=== PATIENT | female | born 1960 | race Caucasian/White ===

== ENCOUNTER 2023-10-08 15:45 | Emergency (ER) | payer BC, SELFPAY ==
--- NOTE | ~2023-10-08 | XR_ITS ---
EXAMINATION: XR CHEST CLINICAL INFORMATION: Cough, shortness of breath COMPARISON: None available. TECHNIQUE: 2 views of the chest were obtained. FINDINGS: Minimal right apical pleural-parenchymal scarring. Otherwise clear lungs. No pleural effusion or pneumothorax. Normal heart size and mediastinal contours. XR/XR chest 2V IMPRESSION: No acute cardiopulmonary abnormality.
[2023-10-08 15:51] VITALS: BP 171/97; PULSE 104; RESP 20; TEMP 36.4; O2SAT 100; BMI 16.5
--- NOTE | 2023-10-08 15:51 | ED.URI ---
HPI - URI/Sore Throat General Chief Complaint: Upper Respiratory Symptoms Stated Complaint: Coughing/SOB Time Seen by Provider: 10/08/23 17:33 Source: patient Mode of arrival: ambulatory Limitations: no limitations History of Present Illness HPI Narrative: 62 yo female with history of asthma here with complaints of chest tightness, wheezing today unrelieved with albuterol at home. post albuterol also noticed some palpitations. Of note, is being treated for sinus infection with augmentin. Symptoms of sinus pressure/congestion are improving. Still has a cough which is intermittently productive. No fevers, chills, chest pain, diff breathing, abdominal pain, vomiting, diarrhea, skin rash, leg swelling or leg pain. Related Data Previous Rx's Medication Instructions Recorded levalbuterol tartrate 45 2 inh inhalation Q4H PRN shortness 10/08/23 mcg/actuation aerosol inhaler of breath or wheezing #15 grams (Xopenex HFA) prednisone 20 mg tablet 40 mg (2 x 20 mg) PO DAILY #10 tabs 10/08/23 Allergies Allergy/AdvReac Type Severity Reaction Status Date / Time Sulfa (Sulfonamide Allergy Intermediate Hives Verified 10/08/23 15:50 Antibiotics) Review of Systems Review of Systems: Yes all other systems are reviewed and are negative Constitutional: Constitutional: Reports no additional constitutional complaints, Denies body ache(s), Denies chills, Denies fever(s), Denies headache(s) and Denies weakness Eyes: Eyes: Reports no additional eye complaints and Denies change in vision ENT: Reports system reviewed and no additional complaints, except as documented, Denies dizziness, Denies headache(s), Denies nasal congestion, Denies nasal discharge and Denies neck pain Cardiovascular: Cardiovascular: Reports no additional cardiovascular complaints, Denies chest pain, Denies leg edema and Denies dyspnea Respiratory: Respiratory: Reports no additional respiratory complaints, Reports cough, Denies dyspnea and Reports wheezing Gastrointestinal: Gastrointestinal: Reports no additional gastrointestinal complaints, Denies abdominal pain, Denies diarrhea, Denies nausea and Denies vomiting Genitourinary: Genitourinary: Reports no additional female genitourinary complaints and Denies urinary incontinence Musculoskeletal: Musculoskeletal: Reports no additional musculoskeletal complaints, Denies back pain, Denies arthralgias, Denies joint swelling, Denies neck pain, Denies numbness and Denies tingling Integumentary/Breasts: Skin/Breast: Reports system reviewed and no additional complaints, except as docu and Denies rash Neurologic: Reports system reviewed and no additional complaints, except as documented, Denies Abnormal speech present, Denies dizziness, Denies headache(s), Denies numbness, Denies tingling and Denies weakness Allergic/Immunologic: Allergic/Immunologic: Reports wheezing PMFSH Past Medical History Attestation statement: The following information was validated with the patient. Source: old records reviewed and nursing notes reviewed Social History Social History Advance Directives: No Advance Directives Information Provided: No Physical Exam Vital Signs: Vital Signs: Last Vital Signs Temp 97.5 F 10/08/23 15:51 Pulse 104 H 10/08/23 15:51 Resp 20 10/08/23 15:51 BP 171/97 H 10/08/23 15:51 Pulse Ox 100 10/08/23 15:51 O2 Del Method Room Air 10/08/23 15:51 BMI result Body Mass Index 16.5 Const: General: cooperative, healthy appearing, comfortable and no acute distress Orientation/consciousness: patient oriented x3 Limitations: no limitations HEENT: Head: Yes normal to inspection Ears: hearing grossly normal bilaterally and TM's normal bilaterally General nose exam: Normal external nose present Face and sinus: Yes normal facial exam Mouth: Normal oral and palatal mucosa present Throat: Yes posterior oropharynx normal, Yes tonsils normal and Yes uvula midline Eyes: General: appearance normal, both eyes and all related structures Pupils: Equal, round and reactive pupils present Neck: Neck: Yes normal visual inspection, Yes full ROM, Yes no lymphadenopathy and Yes no meningeal signs Chest: Chest palpation & inspection: normal inspection of the chest Resp: Effort & Inspection: normal respiratory effort Auscultation: wheezes Cardio: Rate: regular rate Rhythm: regular rhythm Peripheral pulses: Peripheral pulses 2+ throughout GI: Inspection: Yes normal to inspection Palpation (GI): Soft to palpation and nontender Auscultation: normal bowel sounds Back/Spine/Pelvis: Thoracic/Lumbar Spine: thoracic and lumbar spine normal to inspection Skin: General skin exam: no rashes or lesions noted Neuro: General: patient oriented x3, no meningeal signs, no focal motor deficits and normal sensation to monofilament Cranial nerves: Yes Equal, round and reactive pupils present Cognition (Neuro): normal cognition Speech: No Abnormal speech present Gait exam (Neuro): Normal gait present Motor exam (neuro): 5/5 motor strength present throughout Extrem: General: Yes normal to inspection Course Course Course Narrative: This is an RME: Additional HPI, ROS, PE not included below will be deferred to primary provider. Patient is a 62-year-old female who presents to the emergency department for evaluation of persistent cough, SOB, palpitations, i don't know if i'm having a panic attack . Reports recently diagnosed with sinus infection, RX'd augmentin, having some improvement in symptoms. However today she used an inhaler, and then began feeling shaky. Plan: viral testing, CXR Medical Decision Making Medical Decision Making [facility] Narrative: 62 yo female with history of asthma here with complaints of chest tightness, wheezing today unrelieved with albuterol at home. post albuterol also noticed some palpitations. Of note, is being treated for sinus infection with augmentin. Symptoms of sinus pressure/congestion are improving. Still has a cough which is intermittently productive. No fevers, chills, chest pain, diff breathing, abdominal pain, vomiting, diarrhea, skin rash, leg swelling or leg pain. +wheezing on exam. VSS Asymptomatic HTN Patient quite anxious-states this is normal. May be contributing to blood pressure/heart rate in addition to her use of the albuterol several times [employer] Will review CXR, viral testing ordered from triage Differential Diagnosis Differential Diagnoses: The differential diagnosis associated with the presentation includes uri with wheezing pna, PE less likely Admission/Observation Consideration of admission/observation: Escalation of care including admission/observation considered Lab Data [facility] Lab Attestation statement: I reviewed the patient's lab results. Labs: Lab Results 10/08/23 Range/Units 16:36 Influenza Type A (PCR) NEGATIVE (Negative) Influenza Type B (PCR) NEGATIVE (Negative) RSV RNA Qual (PCR) NEGATIVE (Negative) SARS-CoV-2 RNA (RT-PCR) NEGATIVE (Negative) Independent Interpretation I performed an independent interpretation of an: Plain X-Ray Interpretation: I independently reviewed the xray and agree with the rad report Radiology Impression Discussion of test interpretation with radiology: I have reviewed the radiologist's reading. Radiologist Impression: [address] [place] [address] XRay Report Signed Patient: Vianney Chavez MR#: [id number] : 1960 Acct:[id number] Age/Sex: 62 / F ADM Date: 10/08/23 Loc: HO.ED Attending Dr: Ordering Physician: Mable Malave CNP Date of Service: 10/08/23 Procedure(s): XR chest 2V Accession Number(s): [id number] cc: Mable Malave CNP; Physician,None ~ EXAMINATION: XR CHEST CLINICAL INFORMATION: Cough, shortness of breath COMPARISON: None available. TECHNIQUE: 2 views of the chest were obtained. FINDINGS: Minimal right apical pleural-parenchymal scarring. Otherwise clear lungs. No pleural effusion or pneumothorax. Normal heart size and mediastinal contours. XR/XR chest 2V IMPRESSION: No acute cardiopulmonary abnormality. Prescription Management I considered prescription management with: Antibiotic Discharge Plan Discharge Clinical Impression: Upper respiratory infection Patient Disposition: Home, Self-Care Instructions: Upper Respiratory Infection (ED) Additional Instructions: Continue the antibiotic Dont use the albuterol, ue the xopenex instead Take the prednisone as prescribed Testing for flu, covid, rsv are negative Chest x-ray is normal Prescriptions: New prednisone 20 mg tablet 40 mg PO DAILY Qty: 10 0RF levalbuterol tartrate [Xopenex HFA] 45 mcg/actuation HFA aerosol inhaler 2 inh inhalation Q4H PRN (Reason: shortness of breath or wheezing) Qty: 15 0RF
[2023-10-08 17:24] LABS: Influenza A PCR NEGATIVE (Negative); Influenza B PCR NEGATIVE (Negative); Resp Syncy Virus RNA Qual PCR NEGATIVE (Negative); SARS COV2 PCR INHOUSE NEGATIVE (Negative)
[2023-10-08 18:00] VITALS: BP 162/72; PULSE 119; RESP 16; TEMP 36.6; O2SAT 97
== END 2023-10-08 18:05 | disposition home or self-care (01) ==
PROVIDERS: Nurse Practitioner Family; Emergency Provider Emergency Medicine
DX: J06.9 Acute upper respiratory infection, unspecified (principal); R07.89 Other chest pain; R00.2 Palpitations; R05.9 Cough, unspecified
CPT/HCPCS: 0241U; 71046; 99283; 99284

== ENCOUNTER 2025-03-07 14:18 | Outpatient (AMB) | payer BC, SELFPAY ==
--- NOTE | 2025-03-07 14:21 | A.OFFPC_ITS ---
Vital Signs 03/07/25 14:27 03/07/25 17:54 Height 4 ft 10.07 in Weight 77 lb 8 oz BMI 16.2 BP 140/83 H 136/82 Blood Pressure Location Rt brachial Rt brachial Position Sitting Sitting Respiration 20 Pulse 108 H Pulse Source Pulse Oximeter Temp 98.7 F Temp Source Temporal Artery Scan Pulse Oximetry (%) 99 Oxygen Delivery Method Room Air Intake Visit Reasons: Establish care; neck pain Cash Accounting Clerk Required: No Accompanied by: Self / Same As Patient Allergies Sulfa (Sulfonamide Antibiotics) Allergy (Intermediate, Verified 03/07/25 14:43) Hives Medication List - Last Reconciled 03/07/25 by Zeny Ch PA-C bupropion HCl XL 150 mg PO QAM cetirizine (Zyrtec) 10 mg PO DAILY PRN levalbuterol tartrate 45 mcg/actuation (Xopenex HFA) 2 inhalations inhalation Q4H PRN mometasone 50 mcg/actuation (Nasonex 24hr Allergy) 2 sprays intranasal DAILY zolpidem 5 mg PO BEDTIME PRN Tobacco use date assessed: 03/07/25 Dental Screening Dental Screen Date: 03/07/25 Did you have a dental visit in the last 12 months?: Yes Did you have a dental problem in the last 6 months where you did not have access to dental care?: No Was dental information given to patient?: Patient has dentist HPI Establish care; neck pain HPI Details The patient is a 64-year-old female presenting for a new patient appointment and management of chronic conditions. The patient has a history of depression, for which she is currently taking bupropion 150 mg. She reports occasional anxiety, managed with lorazepam as needed. She has recently started seeing a new psychiatrist after her previous psychiatrist retired. The patient also reports allergic rhinitis, for which she takes Zyrtec and occasionally uses Nasonex nasal spray. She experiences insomnia occasionally and takes zolpidem as needed, prescribed by her psychiatrist. In terms of preventative care, the patient had a colonoscopy in 2015 and is due for another in 2025. She has not had a recent mammogram and is due for one, along with a bone density scan, which will be scheduled. Comprehensive blood work is planned to assess various health parameters, including kidney function, electrolytes, anemia, diabetes, cholesterol, liver function, thyroid function, and vitamin levels. Social History - Employment: The patient is a college t eacher. [facility] Medical History Preventative health care Insomnia Allergic rhinitis Anxiety Depression Surgical History (Updated 03/07/25 @ 18:12 by Zeny Ch PA-C) History of colonoscopy (~2015) Family History Father No problems noted. Mother Arthritis Social History Housing: House Alcohol intake: current Alcohol intake frequency: a few times a week Patient Tobacco Use Status: Former Tobacco user service: No Current occupational status: employed Cognitive needs: No Hearing needs: No Vision needs: Yes (reading) Questionnaire PHQ-9 Over the last 2 weeks, how often have you been bothered by any of the following problems? 1. Little interest or pleasure in doing things: not at all 2. Feeling down, depressed, or hopeless: not at all 3. Trouble falling or staying asleep, or sleeping too much: not at all 4. Feeling tired or having little energy: not at all 5. Poor appetite or overeating: not at all 6. Feeling bad about yourself - or that you are a failure or have let yourself or your family down: not at all 7. Trouble concentrating on things, such as reading the newspaper or watching television: not at all 8. Moving or speaking so slowly that other people could have noticed. Or the opposite - being so fidgety or restless that you have been moving around a lot more than usual: not at all 9. Thoughts that you would be better off or of hurting yourself in some way: not at all Total score: 0 Depression Screening Interpretation: Negative Depression Screening Done: Yes 81908 - PHQ-9 Billing: Yes Source: Developed by Drs. Mumtaz Thrasher, Isabella Eaton, Jc Alba and colleagues, with an educational alex from [employer]. Thrive Questionnaire Date Thrive assessed: 03/07/25 I am a: Patient What is your living situation today?: I have a steady place to live Within the past 12 months, did the food you bought not last and you didn't have the money to get more?: Never true Within the past 12 months, did you worry whether your food would run out before you got money to buy more?: Never true Do you have trouble paying for medicines?: No Do you have trouble getting transportation to medical appointments?: No Do you have trouble paying your heating and electricity bill?: No Do you have trouble taking care of your child, family member or friend?: No Do you have trouble with day-to-day activities such as bathing, preparing meals, shopping, managing finances, etc.?: No Are you currently unemployed and looking for a job?: No Are you interested in more education?: No Please select the resources that you would like help with: None Currently or been in a relationship where the following occur: No concerns reported THRIVE Score: 0 AUDIT C Alcohol Use Questionnaire (AUDIT-C) 1. How often do you have a drink containing alcohol?: 2-3 times a week 2. How many drinks containing alcohol do you have on a typical day when you are drinking?: 1 or 2 3. How often do you have six or more drinks on one occasion?: Never Total Score: 3 Score Reviewed/Action Taken: No EDNA-7 AMB Questionnaire EDNA-7 Date EDNA - 7 assessed: 03/07/25 Feeling nervous, anxious, or on edge: 0 = Not at all Not being able to stop or control worryin = Not at all Worrying too much about different things: 0 = Not at all Trouble relaxin = Not at all Being so restless that it is hard to sit still: 0 = Not at all Becoming easily annoyed or irritable: 0 = Not at all Feeling afraid as if something awful might happen: 0 = Not at all Total EDNA-7 score (0-4 normal; 5-9 mild; 10-14 moderate; 15-21 severe): 0 Source: Developed by Drs. Mumtaz Thrasher, Isabella Eaton, Jc Alba and colleagues, with an educational alex from [employer]. EDNA-7 Assessment Billing EDNA-7 Assessment Tool: EDNA-7 Assessment 23106 Review of Systems Const Details: - Psychiatric: Reports depression and occasional anxiety. - Respiratory: Denies shortness of breath. - Cardiovascular: Denies chest pain. Physical exam (Primary Care) Vital Signs: Last Vital Signs Temp 98.7 F 03/07/25 14:27 Pulse 108 H 03/07/25 14:27 Resp 20 03/07/25 14:27 BP 140/83 H 03/07/25 14:27 Pulse Ox 99 03/07/25 14:27 Oxygen Delivery Method Room Air 03/07/25 14:27 Care Plan Goal for BP management: <140/90 at Goal BMI result Body Mass Index 16.2 Low BMI BMI Assessment/Plan discussion: Low BMI Low, Plan discussed: lifestyle, increase calorie intake and dietary Tobacco/Smoking Status: Tobacco use Status Tobacco use date assessed 03/07/25 03/07/25 14:27 Patient Tobacco Use Status Former Tobacco user 03/07/25 14:38 PHQ-9: PHQ-9 Score PHQ-9: Total score 0 03/07/25 14:44 Depression Screening Interpretation: Negative Thrive Assessment: Date of Thrive Assessment Date Thrive assessed 03/07/25 03/07/25 14:27 Currently or been in a relationship where the following occur: No concerns reported Const Other: Appearance: Alert. Oriented X3. No acute distress. Head: Normal external exam. Normocephalic. Atraumatic. Eyes: Pupils are equal, round, and reactive to light. Extraocular movements intact. Conjunctiva and sclera normal. Eyelids normal. Ears: External auditory canal normal. Tympanic membranes normal. Throat: Pharynx normal. Uvula midline. Moist mucous membranes. Neck: Normal inspection. Neck supple. Full range of motion. No adenopathy. Thyroid Normal. No meningeal signs. No neck mass noted. Cardiovascular: Normal heart rate and rhythm. Heart sound normal. No murmurs noted. Pulses normal throughout. Blood pressure recorded at 136/82. Respiratory: No respiratory distress. Painless inspiration. Breath sounds normal. No wheezes/rales/rhonchi noted. Chest nontender. No accessory muscle usage noted or decreased air movement noted. Abdomen: Soft and nontender. Back: Full range of motion noted. Skin: Skin warm and dry. Normal skin color. Normal skin turgor. No rashes/lesions/lacerations noted. Extremities: No lower extremity edema. Extremities exhibit normal range of motion. Neuro: Oriented X 3. No motor deficit. No sensory deficit. Reflexes normal. Coding Level of Care Code New Pt Level 4 (44677) Complex EM visit Add On G2211 Diagnoses Depression F32.A Allergic rhinitis J30.9 Anxiety F41.9 Insomnia G47.00 Preventative health care Z00.00 Additional Codes EDNA-7 Assessment Billing - EDNA-7 Assessment Tool: EDNA-7 Assessment 31255 ([id number]) PHQ-9 - 36311 - PHQ-9 Billing: Yes ([id number]) Assessment & Plan Assessment & Plan (1) Depression: Code(s): F32.A - Depression, unspecified Category: Medical Plan: The patient is currently on bupropion 150 mg for depression and has recently started seeing a new psychiatrist after her previous psychiatrist retired. (2) Allergic rhinitis: Code(s): J30.9 - Allergic rhinitis, unspecified Category: Medical Plan: The patient takes Zyrtec and occasionally uses Nasonex nasal spray for allergic rhinitis. (3) Anxiety: Code(s): F41.9 - Anxiety disorder, unspecified Category: Medical Plan: The patient manages occasional anxiety with lorazepam as needed. (4) Insomnia: Code(s): G47.00 - Insomnia, unspecified Category: Medical Plan: The patient experiences insomnia occasionally and takes zolpidem as needed, prescribed by her psychiatrist. (5) Preventative health care: Code(s): Z00.00 - Encounter for general adult medical examination without abnormal findings Category: Medical Plan: The patient is due for a mammogram and a bone density scan, which will be scheduled. Comprehensive blood work is planned to assess various health parameters, including kidney function, electrolytes, anemia, diabetes, cholesterol, liver function, thyroid function, and vitamin levels. Plan Plan Patient was informed and verbally consented to the use of an ambient scribe for clinic note documentation during this visit. 1. Depression The patient is currently on bupropion 150 mg for depression and has recently started seeing a new psychiatrist after her previous psychiatrist retired. 2. Anxiety The patient manages occasional anxiety with lorazepam as needed. 3. Allergic Rhinitis The patient takes Zyrtec and occasionally uses Nasonex nasal spray for allergic rhinitis. 4. Insomnia The patient experiences insomnia occasionally and takes zolpidem as needed, prescribed by her psychiatrist. 5. Preventative Care The patient is due for a mammogram and a bone density scan, which will be scheduled. Comprehensive blood work is planned to assess various health parameters, including kidney function, electrolytes, anemia, diabetes, cholesterol, liver function, thyroid function, and vitamin levels. During the visit, we discussed the patient's current management of depression with bupropion and the occasional use of lorazepam for anxiety. We also reviewed her use of Zyrtec and Nasonex for allergic rhinitis and zolpidem for insomnia. Preventative care measures were emphasized, including scheduling a mammogram and bone density scan, and conducting comprehensive blood work to assess various health parameters. Orders: Orders Hemoglobin A1c Today Z00.00 - Encounter for general adult medical examination without abnormal findings Complete Blood Count Auto Diff Today Z00.00 - Encounter for general adult medical examination without abnormal findings Lipid Panel Today Z00.00 - Encounter for general adult medical examination without abnormal findings Liver Panel Today Z00.00 - Encounter for general adult medical examination without abnormal findings Vitamin B12 and Folate Today Z00.00 - Encounter for general adult medical examination without abnormal findings MM screening mammo BI Today Z12.31 - Encounter for screening mammogram for malignant neoplasm of breast XR DEXA axial skeleton Today M81.0 - Age-related osteoporosis without current pathological fracture Comprehensive [place]. Panel Fast Today Z00.00 - Encounter for general adult medical examination without abnormal findings Magnesium Today Z00.00 - Encounter for general adult medical examination without abnormal findings TSH reflex Free T4 Today Z00.00 - Encounter for general adult medical examination without abnormal findings C Reactive Protein Today Z00.00 - Encounter for general adult medical examinat ion without abnormal findings Vitamin D 25-OH Total Today Z00.00 - Encounter for general adult medical examination without abnormal findings Medications: New azithromycin For 250 mg dose pack: take 500 mg today (day 1), then 250 mg for 4 days (days 2-5) PO 6 tabs 0RF Discontinued prednisone Discontinued Reason: Patient no longer taking 40 mg (2 x 20 mg) PO DAILY 10 tabs 0RF Patient Instructions: - Continue taking bupropion as prescribed for depression. - Use lorazepam as needed for anxiety. - Take Zyrtec and use Nasonex as needed for allergic rhinitis. - Use zolpidem as needed for insomnia. - Schedule a mammogram and bone density scan. - Complete comprehensive blood work as instructed, fasting for 10-12 hours prior.
--- OUTSIDE RECORDS SUMMARY | 2025-03-07 14:23 | XMS_ITS | Data Portability ---
Author Organization [facility] [address] Address [address] [place] [address] Assessment Encounter Date Assessment Date Assessment LastModified by Organization Details LastModified Time 06/18/2024 06/18/2024 Based on your presentation and exam, you are being diagnosed with Sinusitis. Rhinosinusitis is most often viral and will resolve on its own in 7-10 days. Symptoms that last longer than 2 weeks an antibiotic could be considered. Based on your presentation, and antibiotic was written. The following are my recommendations to help your symptoms and to allow your condition to improve: 1. Drink plenty of fluids while you are ill- stay hydrated 2. Rest - don't overexert yourself - this includes sports and any gym routines. 3. I suggest taking an antihistamine - like Claritin, Zyrtec, or Benedryl 4. If you take OTC cold medication I would recommend Bere-Selzer Cold/Cough. 5. Mucinex with a lot of water is ok - if you are having trouble clearing your nasal passages of mucous. However, if you start to cough then discontinue - this can increase coughing due to a watery post nasal drip. 6. Saline Nasal [place] is recommended. Since an antibiotic was prescribed you need to complete the full course - this is important so you don't develop any antibiotic resistance to future infections. I advise taking a Probiotic like Florastor since you are on an antibiotic - this will help you re-colonize your body with the good bacteria. Typically, it will take 6 months for you to restore your normal body eladio after an antibiotic. Don't hesitate to be seen again if you develop: 1. Fever > 100.5 2. Worsening Headache 3. Stiff Neck 4. Worsening Cough or Shortness of breath 5. Visual Changes. The antibiotic should start to work in 4-5 days. You may not notice immediate response. Thank you for using [facility] today, please feel free to contact our office if you have any questions or concerns. itzel Not available 06/18/2024 11:45:42 Plan of Treatment Reminders Order Date Submit Date Provider Last Modified By Organization Details Last Modified Time Details Appointments None recorded. Lab None recorded. Referral None recorded. Procedures None recorded. Surgeries None recorded. Imaging None recorded. Medication Orders amoxicillin 875 mg-potassiu m clavulanate 125 mg tablet 2023 024 [facility], [address] [place], [address], 11:45:53 amoxicillin 875 mg-potassiu m clavulanate 125 mg tablet [address] [facility] [address], [address] [place], [address], 11:26:15 amoxicillin 875 mg-potassiu m clavulanate 125 mg tablet [address] [facility] [address], [address] [place], [address], 11:26:15 Patient TargetsNo targets recorded. Patient Instructions Encounter Date Encounter Id Patient Instructions Last Modified By Organization Details Last Modified Time 05/26/2023 [id number] Acute Sinusitis: Care Instructions [email or web address] Not available 05/26/2023 11:35:55 10/02/2023 [id number] Acute Sinusitis: Care Instructions [email or web address] Not available 10/02/2023 13:37:35 06/18/2024 [id number] Acute Sinusitis: Care Instructions [email or web address] Not available 06/18/2024 11:45:49 Reason for Referral None Reported. Problems Name Problem SNOMED Code Status Onset Date Resolution Date Notes Provider Name and Address Organization Details Recorded Time Anxiety 37162293 Active ALEX Hinojosa [facility] 4 11:30:45 Depressive disorder 55094322 Active Kailey Pinckney romina, [place] - [facility] 4 11:30:56 Acute bacterial sinusitis 79396958 Active 024 MARCELINA OG NP [address] [place], [address] [facility] - [facility] 4 11:45:16 Problem Notes None recorded. Procedures Surgical History Date Name Laterality Status Provider Name and Address Organization Details Recorded Time 4 extraction of cataract completed RE TANG PA - [facility] 05/26/2023 11:16:52 Imaging Results None recorded. Procedure Notes None recorded. Medical Equipment None Reported. Allergies Allergen ID Allergen Name Allergen Category Reaction Reaction Severity Criticality Documentation Date Start Date Code Code System Note Provider Name and Address Organization Details Recorded Time 485415 Substance with sulfonami de structure and antibacte rial mechanism of action (substanc e) medicatio n rash Not available Not available 05/26/2023 75017 8003 SNOMED RE CHRISTOPHERO romina, [place] - [facility] 3 11:15:43 Medications Name Sig Start Date Stop Date Status Note LastModified by Organization Details LastModified Time Wellbutrin SR 150 mg tablet, 12 hr sustained-rel ease Take 1 tablet twice a day by oral route. active Not Available Not Available No t Available Wellbutrin 100 mg tablet Take 1 tablet twice a day by oral route. 05/26 completed Not Available Not Available Not Available amoxicillin 875 mg-potassium clavulanate 125 mg tablet Take 1 tablet every 12 hours by oral route for 10 days. 2023 active Not Available Not Available Not Avai lable Flonase 10/02 completed Not Available Not Available Not Available Zyrtec 10 mg capsule Take by oral route. active Not Available Not Available No t Available Karen Allergy 10/02 completed Not Available Not Available Not Available Nasonex 24hr Allergy 50 mcg/actuation nasal spray Take by nasal route. active Not Available Not Available No t Available Vitals Date Recorded Body height Body mass index (BMI) Body weight Pain severity - 0-10 verbal numeric rating [Score] - Reported Respiratory rate Body temperature Oxygen saturation Oxygen saturation in Arterial blood by Pulse oximetry Heart rate Systolic And Diastolic Provider Name and Address Organization Details Last Updated DateTime 4 152.4 cm 16.6 kg/m2 95724.3 5 g 0 16 /min 97.1 [degF] 99 % 99 % 96 /min 162/90 mm[Hg] ERNA CLIFFORD PA - [facility] 4 13:33:06 Date Recorded Body height Body mass index (BMI) Body weight Pain severity - 0-10 verbal numeric rating [Score] - Reported Body temperature Respiratory rate Oxygen saturation Oxygen saturation in Arterial blood by Pulse oximetry Heart rate Systolic And Diastolic Provider Name and Address Organization Details Last Updated DateTime 3 152.4 cm 16.6 kg/m2 69226.3 5 g 4 97.5 [degF] 18 /min 100 % 100 % 83 /min 150/90 mm[Hg] RE TANG PA - [facility] 3 11:18:03 Date Recorded Body height Body mass index (BMI) Body weight Body temperature Oxygen saturation Oxygen saturation in Arterial blood by Pulse oximetry Heart rate Respiratory rate Pain severity - 0-10 verbal numeric rating [Score] - Reported Systolic And Diastolic Provider Name and Address Organization Details Last Updated DateTime 4 152.4 cm 16.6 kg/m2 92308.3 5 g 98 [degF] 100 % 100 % 102 /min 16 /min 8 152/89 mm[Hg] Kailey Long PA - [facility] 4 11:32:25 Social History Question Answer Notes LastModified by [employer] Details LastModified Time Tobacco Smoking Status Never Smoker RE vanegas PA - [facility] 05/26/2023 11:16:39 Have You Had A Flu Shot This Season? No Information not available 05/26/2023 If No, Would You Like A Flu Shot Today? No Information not available 05/26/2023 Have You Recently Traveled Abroad? Yes [place] 06/17/2024 [email or web address] Information not available 06/18/2024 Sex: Unknown Functional Status Question Answer Note LastModified by [employer] Details LastModified Time Do you use any illicit or recreational drugs? No Information not available 05/26/2023 What is your level of alcohol consumption? Occasional Information not available 05/26/2023 Mental Status None recorded. Family History Relationship Description Onset Age of this Age Resolved Age Notes LastModified by Organization Details LastModified Time Father No current problems or disability Not available 05/26 11:16:30 Mother No current problems or disability Not available 05/26 11:16:30 Medical History No medical history recorded. Gynecological History Statement/Question Response Date of LMP Is there any chance of ? No LMP N/A Obstetrics History GPAL:G 0 P 0 0 0 0 Immunizations Vaccine Type Date Status Note Provider Nam e and Address Organization Details Recorded Time Influenza, split virus, quadrivalent, preservative 6 completed RE DEPINTO null, PA - [facility] 05/26/2023 11:15:35 Influenza, MDCK, quadrivalent, PF 9 completed RE DEPINTO null, PA - [facility] 05/26/2023 11:15:35 Influenza, MDCK, quadrivalent, PF 8 completed RE DEPINTO null, PA - [facility] 05/26/2023 11:15:35 zoster recombinant 1 completed RE DEPINTO null, PA - [facility] 05/26/2023 11:15:35 zoster recombinant 0 completed RE DEPINTO null, PA - [facility] 05/26/2023 11:15:35 COVID-19, mRNA, LNP-S, PF, 100 mcg/0.5mL dose or 50 mcg/0.25mL dose 1 completed RE DEPINTO null, PA - [facility] 05/26/2023 11:15:35 COVID-19, mRNA, LNP-S, PF, 100 mcg/0.5mL dose or 50 mcg/0.25mL dose 1 completed RE DEPINTO null, PA - [facility] 05/26/2023 11:15:35 COVID-19, mRNA, LNP-S, PF, 100 mcg/0.5mL dose or 50 mcg/0.25mL dose 1 completed RE DEPINTO null, PA - [facility] 05/26/2023 11:15:35 COVID-19, mRNA, LNP-S, PF, 30 mcg/0.3 mL dose, abraham-sucrose 2 completed RE DEPINTO null, PA - [facility] 05/26/2023 11:15:35 COVID-19, mRNA, LNP-S, bivalent, PF, 30 mcg/0.3 mL dose 2 completed RE DEPINTO null, PA - [facility] 05/26/2023 11:15:36 COVID-19, mRNA, LNP-S, PF, abraham-sucrose, 30 mcg/0.3 mL 3 completed RE DEPINTO null, PA - [facility] 05/26/2023 11:15:36 Influenza, split virus, quadrivalent, PF 0 completed RE DEPINTO null, PA - [facility] 05/26/2023 11:15:36 Influenza, split virus, quadrivalent, PF 1 completed RE DEPINTO null, PA - [facility] 05/26/2023 11:15:36 Influenza, split virus, quadrivalent, PF 2 completed RE DEPINTO null, PA - [facility] 05/26/2023 11:15:36 Past Encounters Encounter ID Performer Location Encounter Start Date Encounter Closed Date Diagnosis/Indication Diagnosis SNOMED-CT Code Diagnosis ICD10 Code Diagnosis Note [id number] [address] [place] [address] 10/09/2018 09:05:45 10/09/2018 09:29:18 [id number] [address] [place] [address] 03/31/2019 12:50:07 03/31/2019 13:35:07 [id number] [address] [facility] [place] [address] 07/06/2019 08:26:11 07/06/2019 08:55:29 [id number] _[address] [facility] [place] [address] 02/26/2021 16:19:08 02/26/2021 17:09:45 [id number] Dionne Dumont MD [address] [facility] [place] [address] 05/26/2023 10:51:56 05/26/2023 11:40:16 Acute sinusitis 02958633 J01.90 - Use the medication s prescribed .- Decongesta nts if tolerated. - Recommend recheck if fever develops or no improvemen t in 5-7 days.- Use saline nasal spray or neti-pot flushes once to twice a day to loosen mucus in sinuses.-. Use a cool mist humidifier in the room that you sleep to add moisture to the air, which should soothe the airways and help loosen any mucus that may be present.-C all 911 or proceed to nearest Emergency Department if you develop shortness of breath, chest pain, severe headache or other symptoms that concern you. [id number] ALEX Hernandez [address] [place] [address] 10/02/2023 12:38:09 10/02/2023 13:41:04 Acute sinusitis 61310040 J01.90 Based on your presentati on and exam, you are being diagnosed with Sinusitis. Rhinosinus itis is most often viral and will resolve on its own in 7-10 days. Symptoms that last longer than 2 weeks an antibiotic could be considered . Based on your presentati on, an antibiotic was written. The following are my recommenda tions to help your symptoms and to allow your condition to improve: 1. Drink plenty of fluids while you are ill- stay hydrated 2. Rest - don't overexert yourself - this includes sports and any gym routines. 3. I suggest taking an antihistam ine - like Claritin, Zyrtec, or Benedryl 4. If you take OTC cold medication I would recommend Bere-Selze r Cold/Cough . 5. Mucinex with a lot of water is ok - if you are having trouble clearing your nasal passages of mucous. However, if you start to cough then discontinu e - this can increase coughing due to a watery post nasal drip. 6. Saline Nasal [place] is recommende d. Since an antibiotic was prescribed you need to complete the full course - this is important so you don't develop any antibiotic resistance to future infections . I advise taking a Probiotic like Florastor since you are on an antibiotic - this will help you re-coloniz e your body with the good bacteria. Typically, it will take 6 months for you to restore your normal body eladio after an antibiotic . Don't hesitate to be seen again if you develop: 1. Fever > 100.5 2. Worsening Headache 3. Stiff Neck 4. Worsening Cough or Shortness of breath 5. Visual Changes. The antibiotic should start to work in 4-5 days. You may not notice immediate response. Thank you for using [facility] today, please feel free to contact our office if you have any questions or concerns. [id number] ALEX COX [address] [place] [address] 06/18/2024 11:17:00 06/18/2024 11:57:59 Acute bacterial sinusitis [id number] J01.90 Health Concerns Section Related Observation LastModified by Organization Detai ls LastModified Time None Recorded Concern Status LastModified by Organization Details LastModified Time None Recorded Advance Directives Directive None Recorded Payers Insurance Date Sequence Insurance Name Policy Number Policy Leonardo Covered Member ID Leonardo Member ID Guarantor Name 10/02/[address] [facility]: O [facility] [place] [id number] Vianney Chavez [id number] Vianney Chavez 06/19/2024 1 SHAYY ([id number]) [id number] Vianney Chavez [id number] Vianney Chavez Notes Date Note Type Note Provider Name and Address Organization Details Recorded Time 05/26/2023 text/html Sinus Complaints UCReported by PatientHPIFor location, patient reportssinus pain,facial pain,pain in the cheek, andsinus pressurebut reportsleft side. For associated symptoms, patient reportsnasal discharge from both nostrilsandear fullnessbut reportsno fever,no difficulty breathing,no nausea or vomiting,no sore throat,no nasal passage blockage,no nasal itching,no cough, andno dizziness. For quality, patient reportspurulent. For context, patient reportsrecent upper respiratory infection,worse with seasonal allergen exposure, andworse with environmental exposure(allergies and has mold at work which triggers). For severity, patient reportsmoderate. Dionne Dumont MD [address] [place], [address], [place] - [facility] 05/26/2023 12:07:47 10/02/2023 text/html 62 y/o female with nearly 2 weeks of sinus congestion and pain, ear pressure, post nasal drainage and now cough ALEX Hernandez [address] [place], [address], PA - [facility] 10/02/2023 13:38:26 06/18/2024 text/html Sinus Complaints UCReported by PatientHPIFor location, patient reportspain behind the eyes both,sinus pain,facial pain, andsinus pressure. For associated symptoms, patient reportsnasal discharge from both nostrilsandfever/chi lls. For context, patient reportsrecent upper respiratory infection. For onset/timing, patient reportsworse in amandinitially started 2weeks ago. For severity, patient reportsmoderate. pt reports sinus drainage, headaceh, congestion for the past three dayspt [place] and has had cold like symptoms for the past week or so, sinus pain and green colored drainage is new for past several day achill and no fever MARCELINA OG NP [address] [place], [address], [place] - [facility] 06/18/2024 11:49:35 OBGyn Episode No OBEpisode recorded.
--- OUTSIDE RECORDS SUMMARY | 2025-03-07 14:23 | XMS_ITS | Patient Health Record ---
Author Organization [facility] Address [address] [place] [address] Care Team Providers Care Blood Tester Fowl Name Role Phone Hawa (RETIRED) Mumtaz CORTEZ Primary Care Provid er Unavailable Mumtaz Huynh Unavailable [phone] Allergies Allergen (clinical drug ingredient) Drug/Non Drug Allergy documented on EMR Reaction Allergy Type Onset Date Status Sulfa Unknown Drug Allergy Active Reason For Referral No Information Medications Medication SIG (Take, Route, Fr equency, Duration) Notes Start Date End Date Status ZyrTEC Active Wellbutrin Active MoviPrep 100 GM as directed Orally a s directed for 1 dose 08/10/2015 Active Immunizations Vaccine Route Administration Date Status Comme nts Flu vaccine no Preserv 3 and > Unknown 06/15/2015 Admin istered Problems Problem Type SNOMED Code ICD Code Onset Dates Problem Status W/U Status Risk Notes Problem 074158120 Encounter for screening for malignant neoplasm of colon (Z12.11) Active confirmed Problem 76253586 Preprocedural examination (Z01.818) Active confirmed Problem 732394526 Positive colorectal cancer screening using DNA-based stool test (R19.5) Active confirmed Plan Of Treatment Future Test Test Name Order Date COLONOSCOPY 08/06/2015 Insurance Providers Payer Name Payer Address Payer Phone Subscriber Number Group Number Insured Name Patient Relationship to Insured Coverage Start Date Coverage End Date O [employer] CLAIM[employer] [address] [place] [address] [id number] [id number] VINES Self - patient is the insured Medical (General) History Medical History History ICD Code Asthma--very mild--uses an inhaler prn Denies PR,DM,CVA,,renal disease Depression
[2025-03-07 14:27] VITALS: BP 140/83; PULSE 108; RESP 20; TEMP 37.1; O2SAT 99; BMI 16.2
[2025-03-07 17:54] VITALS: BP 136/82
== END 2025-03-07 14:54 | disposition home or self-care (01) ==
LOC: HO.HMCSH 14:19
PROVIDERS: Visit Provider Physician Assistant Medical
DX: F32.A Depression, unspecified (principal); J30.9 Allergic rhinitis, unspecified; F41.9 Anxiety disorder, unspecified; G47.00 Insomnia, unspecified; Z00.00 Encounter for general adult medical examination without abnormal findings

== ENCOUNTER → 2025-03-07 14:18 | Outpatient (BNVA) | payer BC, SELFPAY | PROVIDERS: Visit Provider Physician Assistant Medical | DX: Z76.89 Persons encountering health services in other specified circumstances (principal); F32.A Depression, unspecified; J30.9 Allergic rhinitis, unspecified; F41.9 Anxiety disorder, unspecified; G47.00 Insomnia, unspecified; Z13.31 Encounter for screening for depression; Z13.39 Encounter for screening examination for other mental health and behavioral disorders | CPT/HCPCS: 96127 ==